=== PATIENT | female | born 1960 | race African-American/Black ===

== ENCOUNTER 2022-08-13 10:39 | Observation (INO) ==
[2022-08-13] MEDS ORDERED: ACETAMINOPHEN 325 MG TABLET PO PRN (10:45)
[2022-08-13] MEDS ORDERED: ONDANSETRON 4 MG/2 ML VIAL IV PRN (10:45)
[2022-08-13] MEDS ORDERED: POTASSIUM CHLORIDE 20 MEQ TABLET PO PRN (10:50)
[2022-08-13] MEDS: DEXTROSE 5% NACL 0.9% 1,000 ML IV SCH ×3 (11:57→20:47)
[2022-08-13] MEDS: methylPREDNISolone SOD SUC 40 MG/1 ML VIAL IV SCH ×2 (11:57→23:13)
[2022-08-13] MEDS: LEVOFLOXACIN INJ 500 MG/100 ML PREMIX IV SCH (12:43)
[2022-08-13] MEDS ORDERED: traMADol 50 MG TABLET PO PRN (14:02)
[2022-08-13] MEDS: DOCUSATE SODIUM 100 MG CAPSULE PO SCH (20:33)
[2022-08-13] MEDS: ENOXAPARIN 40 MG/0.4 ML SYRINGE SUBCUT SCH (20:49)
[2022-08-13] MEDS: amLODIPine 10 MG TABLET PO SCH (20:51)
[2022-08-14] MEDS: DEXTROSE 5% NACL 0.9% 1,000 ML IV SCH ×3 (00:20→14:08)
[2022-08-14 06:14] LABS: Hematocrit 36.3 VOL% (35.7-47.0); Hemoglobin 11.3 GM/DL (12.0-16.0); Immature Granulocytes % 0.9 %; Immature Granulocytes Absolute 0.03 #; Lymphocytes # 0.6 10*3/uL (1.4-4.0); Lymphocytes % 17.9 % (21.3-54.2); Mean Corpuscular HGB Conc 31.1 GM/DL (32-36); Mean Platelet Volume 11.5 FL (9.6-12.0); Monocytes # 0.1 10*3/uL (0.11-0.8); Monocytes % 3.1 % (1.7-12.7); Neutrophils % 78.1 % (38.7-73.9); Platelet Count 183 T/CUMM (130-400); Red Blood Count 4.54 MC/CUMM (3.8-5.5); Red Cell Distribution Width 14.6 % (9.3-17.3); White Blood Count 3.2 T/CUMM (4-12)
[2022-08-14 06:43] LABS: Albumin 3.2 G/DL (3.4-5.0); Bilirubin,Total 0.4 MG/DL (0.20-1.00); Calcium 8.7 MG/DL (8.5-10.1); Osmolality,Calculated 286.1 MOS/KG (273-304); Potassium 3.5 MMOL/L (3.5-5.1); Total Protein 7.3 G/DL (6.4-8.2)
[2022-08-14] MEDS: PANTOPRAZOLE 40 MG TABLET PO SCH (08:25)
[2022-08-14] MEDS: DOCUSATE SODIUM 100 MG CAPSULE PO SCH ×2 (08:25→22:02)
[2022-08-14] MEDS: LEVOFLOXACIN INJ 500 MG/100 ML PREMIX IV SCH (14:06)
[2022-08-14] MEDS: ENOXAPARIN 40 MG/0.4 ML SYRINGE SUBCUT SCH (22:02)
[2022-08-14] MEDS: amLODIPine 10 MG TABLET PO SCH (22:02)
[2022-08-15 05:34] LABS: Basophils % 0.5 % (0.0-0.8); Eosinophils # 0.1 10*3/uL (0.0-0.87); Eosinophils % 0.8 % (0.00-10.9); Hematocrit 37.8 VOL% (35.7-47.0); Hemoglobin 11.7 GM/DL (12.0-16.0); Immature Granulocytes % 0.3 %; Immature Granulocytes Absolute 0.02 #; Lymphocytes # 2.3 10*3/uL (1.4-4.0); Lymphocytes % 35.9 % (21.3-54.2); Mean Corpuscular Volume 80.8 FL (87-102); Mean Platelet Volume 11.5 FL (9.6-12.0); Monocytes # 0.5 10*3/uL (0.11-0.8); Neutrophils % 55.5 % (38.7-73.9); Platelet Count 222 T/CUMM (130-400); Red Blood Count 4.68 MC/CUMM (3.8-5.5); Red Cell Distribution Width 14.7 % (9.3-17.3); White Blood Count 6.4 T/CUMM (4-12)
[2022-08-15 05:55] LABS: Alanine Aminotransferase 33 U/L (13-56); Albumin 3.3 G/DL (3.4-5.0); Alkaline Phosphatase 169 U/L (45-117); Aspartate Amino Transferase 16 U/L (0-37); Bilirubin,Total < 0.39 MG/DL (0.20-1.00); Blood Urea Nitrogen 9 MG/DL (7-18); Calcium 8.4 MG/DL (8.5-10.1); Carbon Dioxide 30 MMOL/L (21-32); Chloride 108 MMOL/L (98-107); Glucose 99 MG/DL (74-106); Osmolality,Calculated 284.8 MOS/KG (273-304); Potassium 3.1 MMOL/L (3.5-5.1); Sodium 144 MMOL/L (136-145); Total Protein 7.1 G/DL (6.4-8.2)
[2022-08-15 08:33] VITALS: BP 130/68
[2022-08-15] MEDS ORDERED: LEVOFLOXACIN 500 MG TABLET PO ONE (09:38)
[2022-08-15] MEDS: POTASSIUM CHLORIDE 20 MEQ TABLET PO SCH ×2 (09:38→10:10)
[2022-08-15] MEDS: DOCUSATE SODIUM 100 MG CAPSULE PO SCH (09:38)
[2022-08-15] MEDS: PANTOPRAZOLE 40 MG TABLET PO SCH (10:33)
== END 2022-08-15 10:43 | disposition home or self-care (01) ==
LOC: N.2W
PROVIDERS: ADMIT Internal Medicine; ATTEND Internal Medicine